=== PATIENT | male | born 2000 | race American Indian/Alaskan Native ===

== ENCOUNTER 2021-09-15 15:09 | Emergency (ER) | payer SELFPAY ==
[2021-09-15] MEDS ORDERED: TETANUS,DIPH,PERTUSS(ACELL) VACCINE 0.5 ML SYRINGE IM ONE (16:31)
[2021-09-15] MEDS ORDERED: oxyCODONE /ACETAMINOPHEN 5-325MG TAB PO ONE (16:31)
[2021-09-15] MEDS ORDERED: LIDOCAINE (1%) 10 MG/1 ML VIAL 20 ML MDV INFILTRATI ONE (16:32)
[2021-09-15] MEDS ORDERED: KETOROLAC 10 MG TAB PO ONE (16:33)
--- NOTE | 2021-09-15 17:12 | XRay Report ---
RIGHT HAND 4 VIEW(S) INDICATION / CLINICAL INFORMATION: FORK LIFT INJURY COMPARISON: None available. FINDINGS: BONES / JOINT(S): There is a comminuted fracture of the distal aspect of the distal phalanx of the fo urth digit. No significant arthritis. SOFT TISSUES: No significant abnormality. ADDITIONAL FINDINGS: None. Signer Name: Aman Chase DO Signed: 09/15/2021 5:08 PM Workstation Name: [id number]
[2021-09-15] MEDS ORDERED: cephALEXin 500 MG CAP PO ONE (17:46)
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
[2021-09-15 18:30] VITALS: BP 121/80
== END 2021-09-15 18:30 | disposition home or self-care (01) ==
LOC: ED 15:09
DX: S62.664B Nondisplaced fracture of distal phalanx of right ring finger, initial encounter for open fracture (principal); X58.XXXA Exposure to other specified factors, initial encounter; Y93.89 Activity, other specified; Y92.89 Other specified places as the place of occurrence of the external cause; Y99.8 Other external cause status
CPT/HCPCS: 12002; 73130; 90471; 90715; 99283; J3490